=== PATIENT | male | born 1960 | race Caucasian/White ===

== ENCOUNTER 2016-04-26 16:48 | Emergency (ER) | payer OTHER ==
[2016-04-26 16:54] VITALS: BP 166/96; PULSE 73; TEMP 98.1; BMI 28.5
[2016-04-26] MEDS ORDERED: OXYCODONE/APAP 5/325MG COMBO TABLET PO ONE (18:53)
--- NOTE | 2016-04-26 19:01 | PDOC ---
History of Present Illness - General Chief Complaint: Injury Stated Complaint: PAIN Time Seen by Provider: 04/26/16 17:26 History Source: Patient Exam Limitations: No Limitations - History of Present Illness Initial Comments: 04/26/16 18:56 04/26/16 19:21 Chief complaint: Left thigh pain posteriorly after falling History of present illness: Patient is a 55-year-old male here today after patient fell doing with a split sliding on ice at work today at 4 pm patient felt pain to posterior mid thigh. Patient is ambulating now with a limp. he reports taking Anaprox prior to arrival here. Denies any numbness of left leg. Patient denies hitting his head. 04/27/16 18:08 Occurred: reports: this afternoon Severity: reports: severe (left thigh) Pain Location: reports: lower extremity (left posterior thigh ) Method of Injury: Yes: fall Modifying Factors: improves with: immobilization Loss of Consciousness: no loss of consciousness Associated Symptoms (Fall): trouble walking (slight limping on left ), other Past History - Past Medical History Allergies/Adverse Reactions: Allergies Allergy/AdvReac Type Severity Reaction Status Date / Time No Known Allergies Allergy Verified 04/26/16 16:50 Home Medications: Ambulatory Orders Oxycodone HCl/Acetaminophen [Percocet 5-325 mg Tablet] 1 tab PO Q6H PRN #20 tablet MDD 4 04/26/16 Other medical history: denies - Psycho/Social/Smoking Cessation Hx Anxiety: No Suicidal Ideation: No Smoking History: Never smoked Information on smoking cessation initiated: No Hx Alcohol Use: No Drug/Substance Use Hx: No Substance Use Type: None Review of Systems - Review of Systems Able to Perform ROS?: Yes Constitutional: No: Symptoms Reported HEENTM: No: Symptoms Reported Respiratory: No: Symptoms reported Cardiac (ROS): No: Symptoms Reported ABD/GI: No: Symptoms Reported : No: Symptoms Reported Musculoskeletal: Yes: Muscle Pain (left posterior thigh) Integumentary: No: Symptoms Reported Neurological: No: Symptoms reported *Physical Exam - Vital Signs Last Vital Signs Temp Pulse Resp BP Pulse Ox 98.1 F 73 20 166/96 99 04/26/16 16:51 04/26/16 16:51 04/26/16 16:51 04/26/16 16:51 04/26/16 16:51 - Physical Exam General Appearance: Yes: Appropriately Dressed Respiratory/Chest: positive: Lungs Clear, Normal Breath Sounds. negative: Chest Tender, Respiratory Distress Cardiovascular: positive: Regular Rhythm, Regular Rate, S1, S2 Vascular Pulses: Doralis-Pedis (L): 4+ Extremity: positive: Normal Capillary Refill, Normal Inspection, Normal Range of Motion, Tender (left posterior thigh). negative: Calf Tenderness Integumentary: positive: Normal Color Neurologic: positive: Alert, Normal Response, Respond to painful stimul, Responsive. negative: Numbness, Sensory Deficit Deep Tendon Reflexes: Knee (L): 4+ Medical Decision Making - Medical Decision Making 04/26/16 19:33 Patient is a 55-year-old male here today after patient fell doing with a split sliding on ice at work today at 4 pm patient felt pain to posterior mid thigh. Patient is ambulating now with a limp. he reports taking Anaprox prior to arrival here. Denies any numbness of left leg. Patient denies hitting his head. Left thigh strain Plan: percocet 5mg/325 mg po now then every 6 hrs prn severe pain continue anaprox for mild to moderate pain as previously ordered Follow Up with orthopedist tomorrow Elevate leg as much as possible and apply ice every hour for 10-15 minutes each time 04/27/16 18:08 *DC/Admit/Observation/Transfer Diagnosis at time of Disposition: Muscle strain of left thigh Qualifiers: Encounter type: initial encounter Qualified Code(s): S76.912A - Strain of unspecified muscles, fascia and tendons at thigh level, left thigh, initial encounter Diagnosis at time of Disposition: (Ruled Out): Pain of left thigh - Discharge Dispostion Disposition: HOME Condition at time of disposition: Stable - Prescriptions Prescriptions: Oxycodone HCl/Acetaminophen [Percocet 5-325 mg Tablet] 1 tab PO Q6H PRN #20 tablet MDD 4 PRN Reason: Severe Pain - Referrals Referrals: Jayme Vo MD [Staff Physician] - - Patient Instructions Additional Instructions: Follow-up with Dr. Vo as soon as possible for further evaluation to him that she was seen here in emergency room you may take anaprox for mild to moderate pain Rest and elevate her left leg as much as possible and apply ice every hour for 10-15 minutes each time Patient voiced understanding of discharge instructions and all questions were answered Print Language: NIGERIAN - Post Discharge Activity Work/School Note: Back to Work
[2016-04-26] MEDS ORDERED: OXYCODONE/APAP 5/325MG COMBO TABLET ONE (19:04)
== END 2016-04-26 19:21 | disposition home or self-care (01) ==
LOC: JERFT 16:48
DX: S76.912A Strain of unspecified muscles, fascia and tendons at thigh level, left thigh, initial encounter (principal); W00.9XXA Unspecified fall due to ice and snow, initial encounter; Y93.89 Activity, other specified; Y92.410 Unspecified street and highway as the place of occurrence of the external cause
CPT/HCPCS: 99281-25